=== PATIENT | female | born 1995 | race Caucasian/White ===

== ENCOUNTER 2025-08-23 18:25 | Inpatient (IN) | payer MEDICAID, SELFPAY ==
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
--- OUTSIDE RECORDS SUMMARY | 2025-08-23 18:50 | XMS_ITS ---
Author Name [facility] Organization Unknown Encounters Encounter Type Encounter Reason Primary Diagnosis Location Date Emergency Mood disorder (CMS/HCC) Mood disorder ([facility]/HCC) [facility] 08/22/2025 Emergency Leg Injury Leg Injury [facility] Emergency RIGHT HIP PAIN RIGHT HIP PAIN [facility] 0 06/24/2025 Care Team Organization Name Specialty Phone Email Start Date End Da te [facility] 08/23/2025 [facility] 06/27/2025
--- OUTSIDE RECORDS SUMMARY | 2025-08-23 18:50 | XMS_ITS | Clinical Summary ---
Author Organization [facility] Address [address] [place] [address] Phone Care Team Providers Care Motor Coach Operator Name Role Phone Unavailable Primary Care Provider Unavailabl e Social History Tobacco Use Types Packs/Day Years Used Date Smoking Tobacco: Never Assessed Comments Unknown Sex and Gender Information Value Date Recorded Sex Assigned at Not on file Legal Sex Female 2:59 AM EDT Gender Identity Female 07/05/2025 2:59 AM EDT Sexual Orientation Not on file Last Filed Vital Signs Vital Sign Reading Time Taken Comments Blood Pressure 106/87 03/10/2021 6:14 PM EDT Pulse 80 03/10/2021 6:14 PM EDT Temperature 37.1 C (98.8 F) 03/10/2021 12:20 PM EDT Respiratory Rate 18 03/10/2021 6:14 PM EDT Oxygen Saturation 100% 03/10/2021 6:14 PM EDT Inhaled Oxygen Concentration - - Weight 54.4 kg (120 lb) 03/10/2021 12:20 PM EDT Height 160 cm (5' 2.99 ) 03/10/2021 12:20 PM EDT Body Mass Index 21.26 03/10/2021 12:20 PM EDT Plan of Treatment Not on file
--- OUTSIDE RECORDS SUMMARY | 2025-08-23 18:50 | XMS_ITS | Clinical Summary ---
Author Organization [facility] Address [address] [place] [address] Care Team Providers Care Sample Coordinator Name Role Phone Unknown, Pcp Primary Care Provider Unavailabl e Allergies No known active allergies Medications No known medications Encounters Date Type Department Care Team Description 08/22/2025 1:52 PM EST - 08/23/2025 4:23 PM EST [facility] Emergency Medicine [address] [place] [phone] Marlin Paredes MD Rifino, James, DO McCann, Erin, MD Kramer, Zachary, MD Mood disorder (CMS/HCC) (Primary Dx) Discharge Disposition: [facility] 06/24/2025 2:52 PM EDT - 06/24/2025 3:32 PM EDT Emergency [facility] Emergency Medicine [address] [place] [phone] Discharge Disposition: Left Without Being Seen (LWBS) 06/24/2025 6:26 AM EDT - 06/24/2025 8:05 AM EDT [facility] Emergency Medicine [address] [place] [phone] Discharge Disposition: Left Without Being Seen (LWBS) from Last 3 Months Social History Tobacco Use Types Packs/Day Years Used Date Smoking Tobacco: Never Assessed [facility] Utilities Answer Date Recorded In the past 12 months has [employer], gas, oil, or water company threatened to [...] any time in the past 12 m [facility], were you homeless or living in a detention (including now)? Patient declined 08/22/2025 Comments Unknown Sex and Gender Information Value Date Recorded Sex Assigned at Female 04/14/2025 5:49 PM EDT Legal Sex Female 5:49 PM EDT Gender Identity Not on file Sexual Orientation Not on file Last Filed Vital Signs Vital Sign Reading Time Taken Comments Blood Pressure 123/80 08/23/2025 4:06 PM EST Pulse 90 08/23/2025 4:06 PM EST Temperature 36.8 C (98.3 F) 08/23/2025 4:06 PM EST Respiratory Rate 18 08/23/2025 4:06 PM EST Oxygen Saturation 99% 08/23/2025 4:06 PM EST Inhaled Oxygen Concentration - - Weight 59 kg (130 lb) 10/05/2024 6:02 AM EST Height 160 cm (5' 3 ) 10/05/2024 6:02 AM EST Body Mass Index 23.03 10/05/2024 6:02 AM EST Plan of Treatment Health Maintenance Due Date Last Done Comments MMR VACCINES (1 of 1 - Stand wyatt series) 1996 VARICELLA VACCINES (1 of 2 - 13+ 2-dose series) 2008 HEPATITIS C SCREENING 2012 HEPATITIS B VACCINES (1 of 3 - 19+ 3-dose series) 2014 Cervical Cancer Screening 2016 Pap Smear 2016 DTAP/TDAP/TD VACCINES (1 - Tdap) 2024 INFLUENZA VACCINE (#1) 2025 COVID-19 IMMUNIZATION (1 - 2 024-25 season) 2025 ZOSTER VACCINE (1 of 2) 2045 RSV IMMUNIZATION (1 - 1-dose 75+ series) 2070 HEPATITIS A VACCINES Aged Out No long er eligible based on patient's age to complete this topic HIB VACCINES Aged Out No longer eligi ble based on patient's age to complete this topic HPV VACCINE Aged Out No longer eligi ble based on patient's age to complete this topic IPV VACCINES Aged Out No longer eligi ble based on patient's age to complete this topic MENINGOCOCCAL ACYW VACCINE Aged Out N o longer eligible based on patient's age to complete this topic MENINGOCOCCAL B VACCINE Aged Out No l onger eligible based on patient's age to complete this topic PNEUMOCOCCAL VACCINE Aged Out No long er eligible based on patient's age to complete this topic ROTAVIRUS VACCINES Aged Out No longer eligible based on patient's age to complete this topic Procedures Procedure Name Priority Date/Time Associated Diagnosis Comments ECG 12-LEAD STAT 08/23/2025 11:35 AM EST SALICYLATE LEVEL STAT 08/22/2025 2:35 PM EST ETHANOL LEVEL STAT 08/22/2025 2:35 PM EST CBC WITH DIFF STAT 08/22/2025 2:35 PM EST BASIC METABOLIC PANEL STAT 08/22/2025 2:35 PM EST CONVERSION BUPRENORPHINE SUBOXONE SCREEN Routine 08/22/2025 2:23 PM EST , URINE, RANDOM STAT 08/22/2025 2:23 PM EST URINE DRUG SCREEN STAT 08/22/2025 2:2 3 PM EST from Last 3 Months Results * (ABNORMAL) Basic Metabolic Panel (08/22/2025 2:35 PM EST) Glucose 148(H) 67 - 99 MG/DL 08/22/2025 4:14 PM [facility] BUN 12 6 - 24 MG/DL 08/22/2025 4:14 PM [facility] Creat Level 0.83 0.44 - 1.03 MG/DL 08/22/2025 4:14 PM [facility] eGFR 97 >90 mL/min/1.7 3m exp2 08/22/2025 4:14 PM [facility] Comment:Calculated using the CKD-epi 2020 race-free equation. BUN Creatinine Ratio 14 08/22/2025 4:14 PM [facility] Sodium 139 135 - 145 mEq/L 08/22/2025 4:14 PM [facility] Potassium 3.9 3.6 - 5.1 mEq/L 08/22/2025 4:14 PM [facility] Chloride 103 98 - 110 mEq/L 08/22/2025 4:14 PM [facility] CO2 24 20 - 29 mEq/L 08/22/2025 4:14 PM [facility] Anion Gap 12 3 - 13 08/22/2025 4:14 PM [facility] Calcium 9.1 8.4 - 10.2 MG/DL 08/22/2025 4:14 PM [facility] Blood 08/22/2025 2:35 PM EST 08/22/2025 2:46 PM EST Marlin Paredes MD LAB BLOOD ORDERABLES Final Res ult [facility] [address] [place] [phone], [facility] [address] [place] [address] * (ABNORMAL) CBC with Diff (08/22/2025 2:35 PM EST) WBC 6.7 4.2 - 10.0 [id number] 08/22/2025 2:55 PM [facility] RBC 4.72 3.80 - 5.10 [id number] 08/22/2025 2:55 PM [facility] Hemoglobin 13.9 11.2 - 14.9 g/dL 08/22/2025 2:55 PM [facility] Hematocrit 40.6 36.0 - 48.0 % 08/22/2025 2:55 PM [facility] MCV 86.0 85.2 - 100.2 fL 08/22/2025 2:55 PM [facility] MCH 29.4 27.0 - 32.4 pg 08/22/2025 2:55 PM [facility] MCHC 34.2 29.5 - 34.2 g/dL 08/22/2025 2:55 PM [facility] RDW 14.1 11.8 - 14.4 % 08/22/2025 2:55 PM [facility] Platelets 249 168 - 382 [id number]/L 08/22/2025 2:55 PM [facility] MPV 9.2(L) 9.6 - 12.5 fL 08/22/2025 2:55 PM [facility] NRBC % 0.0 -1.0 - 0.0 % 08/22/2025 2:55 PM [facility] NRBC (absolute) 0.0 [id number]/L 2:55 PM [facility] Immature Granulocytes % 0.1 % 08/22/2025 2:55 PM [facility] Immature Granulocytes (absolute) 0.0 0.0 - 0.1 [id number]/L 08/22/2025 2:55 PM [facility] Seg Neutrophil % 70.2 % 08/22/20 2:55 PM [facility] Seg Neutrophil (absolute) 4.7 1.9 - 6.7 [id number]/L 08/22/2025 2:55 PM [facility] Lymphocyte % 22.9 % 08/22/2025 2:55 PM [facility] Lymphocyte (absolute) 1.5 1.0 - 3.3 [id number]/L 08/22/2025 2:55 PM [facility] Monocyte % 5.2 % 08/22/2025 2:55 PM [facility] Monocyte (absolute) 0.4 0.3 - 0.9 [id number]/L 08/22/2025 2:55 PM [facility] Eosinophil % 1.5 % 08/22/2025 2:55 PM [facility] Eosinophil (absolute) 0.1 0.0 - 0.4 [id number]/L 08/22/2025 2:55 PM [facility] Basophil % 0.1 % 08/22/2025 2:55 PM [facility] Basophil (absolute) 0.0 0.0 - 0.1 [id number]/L 08/22/2025 2:55 PM [facility] 08/22/2025 2:35 PM EST 08/22/2025 2:46 PM EST Marlin Paredes MD LAB BLOOD ORDERABLES Final Res ult Performing Organization Address [facility] Co de Phone Number [facility] [address] [place] [address], [facility] [address] [place] [address] * Ethanol Level (08/22/2025 2:35 PM EST) Ethanol Level Not Detected Not Detected MG/DL 08/22/2025 4:14 PM [facility] Blood 08/22/2025 2:35 PM EST 08/22/2025 2:46 PM EST Marlin Paredes MD LAB BLOOD ORDERABLES Final Res ult Performing Organization Address City/[facility]/ZIP Co de Phone Number [facility] [address] [place] [phone], [facility] [address] [place] [address] * (ABNORMAL) Salicylate Level (08/22/2025 2:35 PM EST) Salicylate Level <0.5(A) MG/DL 08/22/2025 4:14 PM [facility] Comment: Salicylate Reference Range: Negative <1.0 mg/dL Therapeutic Range: 2.0-20.0 mg/dL Blood 08/22/2025 2:35 PM EST 08/22/2025 2:46 PM EST Marlin Paredes MD LAB BLOOD ORDERABLES Final Res ult [facility] [address] [place] [address], [facility] [address] [place] [address] * (ABNORMAL) Urine Drug Screen (08/22/2025 2:23 PM EST) Amphetamine Scrn, Ur POSITIVE SCREEN(A) 08/22/2025 2:45 PM [facility] Benzodiazepine Screen, Urine None Detected 08/22/2025 2:45 PM [facility] Cannabinoid Screen, Urine POSITIVE SCREEN(A) 08/22/2025 2:45 PM [facility] Cocaine Screen, Ur POSITIVE SCREEN(A) 08/22/2025 2:45 PM [facility] Fentanyl Screen, Urine None Detected 08/22/2025 2:45 PM [facility] Comment: This test was developed and [...] Screen, Urine None Detected 08/22/2025 2:45 PM [facility] Opiate Screen, Urine None Detected 08/22/2025 2:45 PM [facility] Comment: Note: Drug of abuse immunoassay [...] Scrn, Ur None Detected 08/22/2025 2:45 PM [facility] Urine 08/22/2025 2:23 PM EST 08/22/2025 2:25 PM EST us Marlin Paredes MD URINE ORDERABLES Final Result [facility] [address] [place] [address], [facility] [address] [place] [address] * Buprenorphine Suboxone Screen (08/22/2025 2:23 PM EST) Buprenorphine Suboxone Scrn None Detected 08/22/2025 2:45 PM EST [facility] 08/22/2025 2:23 PM EST 08/22/2025 2:25 PM EST us Marlin Paredes MD LAB BLOOD ORDERABLES Final Res ult Performing Organization Address [facility] Co de Phone Number [facility] [address] [place] [phone], [facility] [address] [place] [phone] * , Urine, Random (08/22/2025 2:23 PM EST) Test, Ur negative negative 08/22/2025 2:35 PM EST [facility] Urine 08/22/2025 2:23 PM EST 08/22/2025 2:24 PM EST us Marlin Paredes MD URINE ORDERABLES Final Result Performing Organization Address [facility] Co de Phone Number [facility] [address] [place] [phone], [facility] [address] [place] [phone] from Last 3 Months Insurance [employer] Care Teams Sample Coordinator Relationship Specialty Start Date End Date Unknown, Pcp, Unknown Address Unknown [place] [id number] PCP - General Internal Medicine 08/22/25
[2025-08-23 18:52] VITALS: BP 122/86; PULSE 109; RESP 16; TEMP 36.9; O2SAT 96; BMI 20.4
--- NOTE | 2025-08-23 18:54 | PC.NURSE ---
Pt admitted to [facility] from [facility] at 1844, safety and skin check performed and unremarkable, VSS, briefly oriented to unit, provided meal to her. Denies SI/HI/AVH and just want to go home . Sitting in kitchen and eating. Provider Belem aware she is here and will see her shortly. Report endorsed to hourly shift manager nurse and admission process will be followed up on by them.
--- NOTE | 2025-08-23 21:36 | PC.NURSE ---
Patient refuses to participate in admission at this time, stating I'm not up to answering any questions, I just wanna go home, I've never been this far away from home.
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
--- NOTE | 2025-08-24 08:27 | HO.PM.IMCN ---
History of Present Illness Data of Consult Service Date: 08/24/25 Primary Care Provider: None Physician HPI Reason for consult: Medical consult 29-year-old female past medical history of depression, KIM presented to [facility] ED with suicidal ideation, injurious behavior, paranoia, auditory and visual hallucinations and homicidal ideation. She has some linear scratches to left forearm, reportedly done by razor but patient stated that her dog scratched her. Tox screen positive for amphetamines, marijuana, and cocaine. Metabolic panel with no evidence of renal injury, no electrolyte imbalances. No anemia, no leukocytosis. On exam she is irritable, cooperative with physical exam. Reports she wants to sleep. Denies any medical concerns. Review of Systems Review of Systems: Denies any shortness of breath, chest pain, abdominal pain or any other concerning symptoms. PMFSH Social History Household Members: Significant Other Housing: Apartment Do you presently have visiting nurse or other home services: No Patient Tobacco Use Status: Former Tobacco user Tobacco use type: Cigarette Smoked in Last 30 Days: No e-Cigarette/Vaping Use: Never Used Patient Interested in Nicotine Replacement: No Patient Given Instructions on How to Stop Smoking: No (Doesn't smoke) Second Hand Smoke Exposure: No Currently Displaying Signs/Symptoms of Drug Intoxication Withdrawal: No Have you been hit, kicked, punched, or otherwise hurt by someone within the past year? If so, by whom?: No Do you feel safe in your current relationship?: Yes Is there a partner from a previous relationship who is making you feel unsafe now?: No Are you made to feel afraid or neglected: No Advance Directives: No Advance Directives Information Provided: No Do you have thoughts of harming others: None Do you have a plan to hurt others: No Plan Recently lost weight without trying: No Eating poorly because of decreased appetite: No Nutrition Risks: No Nutritional Risk Patient : No : No Poor oral hygiene: No service: No Sexual orientation: Straight/Heterosexual Meds Allergies Allergy/AdvReac Type Severity Reaction Status Date / Time No Known Allergies Allergy Verified 08/23/25 18:51 Active Medications: Current Medications Acetaminophen (Acetaminophen 325 Mg Tablet) 650 mg PO Q6H PRN PRN Reason: Headache/Pain, Scale 1-10 Al Hydroxide/Mg Hydroxide (Magnesium Hydrox/Alum Hydrox 30 Ml Oral.Susp) 30 ml PO Q6H PRN PRN Reason: Heartburn/Nausea Hydroxyzine HCl (Hydroxyzine Hcl 25 Mg Tablet) 25 mg PO Q6H PRN PRN Reason: mild anxiety Last Admin: 08/23/25 22:09 Dose: 25 mg Magnesium Hydroxide (Milk Of Magnesia 30 Ml Oral.Susp) 30 ml PO DAILY PRN PRN Reason: Constipation Nicotine (Nicotine 21 Mg Patch.Td24) 21 mg TRANSDERMA DAILY PRN PRN Reason: nicotine craving Nicotine Polacrilex (Nicotine Polacrilex 2 Mg Gum) 2 mg BUCCAL Q2H PRN PRN Reason: Nicotine Cravings Trazodone HCl (Trazodone Hcl 50 Mg Tablet) 50 mg PO BEDTIME MRX1 PRN PRN Reason: Insomnia Last Admin: 08/23/25 22:31 Dose: 50 mg Home Medications ?Medication ?Instructions ?Recorded ?Confirmed ?Last Taken ?Type No Known Home Meds 08/24/25 08/24/25 Unknown History Physical Exam Vital Signs and Narrative: Vital Signs: Last Vital Signs Temp 98.4 F 08/23/25 18:52 Pulse 109 H 08/23/25 18:52 Resp 16 08/23/25 18:52 BP 122/86 08/23/25 18:52 Pulse Ox 96 08/23/25 18:52 O2 Del Method Room Air 08/23/25 18:52 BMI result Body Mass Index 20.4 Alert and oriented X3, irritable and wade Neuro: CN II-X11 intact, no deficits, visual acuity intact EYES: PERRLA, EOM intact ENT: Hearing intact, MMM Cardiac: S1 S2 RRR, No ectopy Pulmonary: lungs clear to auscultation, No increased WOB. Abdominal: BS active in all 4 quadrants, no guarding or tenderness MSK: Strength 5/5 upper and lower extremities : Deferred Extremities: No edema in lower extremities Psych: Irritable, cooperative with exam Skin: Warm and dry, Intact Assessment and Plan (1) Depression: Status: Acute Plan 29-year-old female presented to the ED with auditory and visual hallucinations, SI and HI, now admitted here for stabilization. Depression/anxiety/polysubstance use disorder/self-injurious behavior/HI Treatment per psychiatric team Thank you for allowing me to participate in the care of this patient. Will follow with you, please notify medical provider with any changes in condition or concerns.
[2025-08-24 08:35] VITALS: BP 133/75; PULSE 99; RESP 16; TEMP 36.8; O2SAT 99
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
--- NOTE | 2025-08-24 12:03 | PC.NURSE ---
Submitted 3 day notice, up on Friday08/29/25; treatment team notified.
[2025-08-24 19:57] VITALS: BP 121/73; PULSE 142; RESP 18; TEMP 37; O2SAT 97
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
[2025-08-26 09:41] VITALS: BP 129/75; PULSE 103; RESP 16; TEMP 36.9; O2SAT 99
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
== END 2025-08-26 12:20 | disposition home or self-care (01) | DRG 754 ==
PROVIDERS: Admitting Provider Nurse Practitioner Psychiatric/Mental Health; Visit Provider Nurse Practitioner Psychiatric/Mental Health
DX: F32.9 Major depressive disorder, single episode, unspecified (principal); R45.851 Suicidal ideations; F19.90 Other psychoactive substance use, unspecified, uncomplicated; F41.9 Anxiety disorder, unspecified; Z87.891 Personal history of nicotine dependence; Z91.52 Personal history of nonsuicidal self-harm; Z79.899 Other long term (current) drug therapy

== ENCOUNTER → 2025-08-23 18:25 | Outpatient (BNV) | payer MEDICAID, SELFPAY | PROVIDERS: Admitting Provider Nurse Practitioner Psychiatric/Mental Health; Visit Provider Nurse Practitioner Family | DX: F32.A Depression, unspecified (principal) | CPT/HCPCS: 99221 ==

== ENCOUNTER → 2025-08-23 18:25 | Outpatient (BNV) | payer OTHER, SELFPAY | PROVIDERS: Admitting Provider Nurse Practitioner Psychiatric/Mental Health; Visit Provider Nurse Practitioner Family | DX: F32.2 Major depressive disorder, single episode, severe without psychotic features (principal); F41.9 Anxiety disorder, unspecified; F19.90 Other psychoactive substance use, unspecified, uncomplicated; Z72.89 Other problems related to lifestyle | CPT/HCPCS: 99231; 99232 ==